=== PATIENT | female | born 1995 | race African-American/Black ===

== ENCOUNTER 2017-12-16 18:48 | Emergency (ER) | payer BC ==
--- NOTE | 2017-12-16 20:31 | ED ---
Upper Extremity Pain - History of Current Complaint Chief Complaint: EDUpperRespComplaint Stated Complaint: FEVER/CHEST PAIN Time Seen by Provider: 12/16/17 20:16 - Allergies/Home Medications Allergies/Adverse Reactions: Allergies Allergy/AdvReac Type Severity Reaction Status Date / Time albuterol Allergy Unknown Verified 12/16/17 19:04 Reaction Details grass pollen Allergy Eyes Verified 12/16/17 19:04 Itchy/Swollen/Red/Watery mold Allergy Difficulty Verified 12/16/17 19:04 Breathing PMH/Surg Hx/FS Hx/Imm Hx Infectious Disease History: No Infectious Disease History: Denies: Traveled Outside the [place] in Last 30 Days Physical Exam Vital Signs On Initial Exam: Initial Vitals Temp Pulse Resp BP Pulse Ox 97.7 F 97 16 144/74 99 12/16/17 18:58 12/16/17 18:58 12/16/17 18:58 12/16/17 18:58 12/16/17 18:58 Diagnostics - Vital Signs Vital Signs Temp Pulse Resp BP Pulse Ox 12/16/17 18:58 97.7 F 97 16 144/74 99 - Laboratory Result Diagrams: 12/16/17 20:33 Lab Statement: Any lab studies that have been ordered have been reviewed, and results considered in the medical decision making process. - EKG 20:42 Cardiac Rate: NL - 90 bpm EKG Rhythm: Sinus Rhythm Summary of EKG Findings: L axis deviation. Bordeline flattening of the T waves more pronounced in the lateral leads Discharge - Discharge Plan Referrals: No Primary Care Phys,NOPCP [Primary Care Provider] - - Attestation Statements Document Initiated by Scribe: Yes Documenting Scribe: Roseann Erickson Provider For Whom Scribe is Documenting (Include Credential): Dr. Katharina Salmon MD Scribe Attestation: Roseann Jamil, scribed for Dr. Katharina Salmon MD on 12/16/17 at 2052.
[2017-12-16 20:43] LABS: Hematocrit 42 % (35-47); Hemoglobin 14.1 g/dl (12.0-16.0); Mean Corpuscular HGB Conc 34 g/dl (31-36); Mean Corpuscular Hemoglobin 30 pg (27-31); Mean Corpuscular Volume 87 fL (80-97); Mean Platelet Volume 7.4 um3 (7.4-10.4); Platelet Count 192 10^3/ul (150-450); Red Blood Count 4.79 10^6/ul (4.00-5.40); Red Cell Distribution Width 13 % (10.5-15); White Blood Count 4.2 10^3/ul (3.5-10.8)
[2017-12-16 20:52] LABS: INR 1.14 (0.77-1.02)
[2017-12-16 20:56] LABS: Urine Appearance Clear; Urine Blood Negative (Negative); Urine Color Straw; Urine Ketones Negative (Negative); Urine Protein Negative (Negative); Urine Specific Gravity 1.005 (1.010-1.030); Urine Urobilinogen Negative (Negative)
[2017-12-16 21:02] LABS: ABS Basophils 0 10^3/ul (0-0.2); ABS Eosinophils 0 10^3/ul (0-0.6); ABS Lymphocytes 0.8 10^3/ul (1.0-4.8); ABS Monocytes 0.8 10^3/ul (0-0.8); ABS Neutrophils 2.6 10^3/ul (1.5-7.7)
[2017-12-16 21:03] LABS: EGFR Non-African American 82.5 (>60)
[2017-12-16 21:07] LABS: ABS Basophils 0 10^3/ul (0-0.2); ABS Neutrophils 2.4 10^3/ul (1.5-7.7); Monocytes % 14 % (0-7)
[2017-12-16] MEDS ORDERED: Ketorolac INJ* 30 MG/ML 1 ML VIAL IV PUSH ONE (21:16)
[2017-12-16] MEDS ORDERED: NS 0.9% 1000 ML* 1,000 ML IV ONE (21:16)
[2017-12-16] MEDS ORDERED: Iohexol 350* (CONTRAST) 500 ML MDV IV ONE (21:22)
--- NOTE | 2017-12-16 21:42 | ED ---
Respiratory - HPI Summary HPI Summary: The pt is a 22 y/o female presenting to [facility] c/o a persistent cough since 2 weeks ago. She notes an intermittent fever for the last 1 week, and mid sternal CP but denies sore throat, body aches, and muscle aches. The CP rated 5/10 in severity is aggravated by deep breaths and coughing. - History of Current Complaint Chief Complaint: EDUpperRespComplaint Stated Complaint: FEVER/CHEST PAIN Time Seen by Provider: 12/16/17 20:16 Hx Obtained From: Patient Onset/Duration: Gradual Onset, Lasting Weeks - 2 weeks, Still Present Initial Severity: Moderate Current Severity: Moderate Pain Intensity: 5 Character: Cough (Productive) Aggravating Factor(s): Deep Breaths, Other - Coughing Alleviating Factor(s): Nothing Associated Signs and Symptoms: Negative - sore throat, body aches, and muscle aches, Fever, Chest Pain with Cough - Allergy/Home Medications Allergies/Adverse Reactions: Allergies Allergy/AdvReac Type Severity Reaction Status Date / Time albuterol Allergy Unknown Verified 12/16/17 19:04 Reaction Details grass pollen Allergy Eyes Verified 12/16/17 19:04 Itchy/Swollen/Red/Watery mold Allergy Difficulty Verified 12/16/17 19:04 Breathing Home Medications: Home Medications Escitalopram Oxalate [Lexapro 10 mg] 10 mg PO DAILY 12/16/17 [History Confirmed 12/16/17] buPROPion TAB* [Wellbutrin TAB*] 100 mg PO BID 12/16/17 [History Confirmed 12/16] PMH/Surg Hx/FS Hx/Imm Hx Previously Healthy: No Endocrine/Hematology History: Denies: Hx Diabetes Cardiovascular History: Denies: Hx Hypertension Respiratory History: Reports: Hx Asthma Sensory History: Denies: Hx Deafness Opthamlomology History: Denies: Hx Legally Blind - Cancer History Cancer Type, Location and Year: None reported - Surgical History Surgery Procedure, Year, and Place: None reported Infectious Disease History: No Infectious Disease History: Denies: Traveled Outside the [place] in Last 30 Days - Family History Known Family History: Negative: Seizure Disorder, Blood Disorder - Social History Occupation: Student Lives: Dormitory/Roommates Alcohol Use: Rare Substance Use Type: Reports: None Smoking Status (MU): Never Smoked Tobacco Review of Systems Constitutional: Negative - Body aches Positive: Fever Negative: Sore Throat Positive: Chest Pain Positive: Cough Musculoskeletal: Negative - Muscle aches All Other Systems Reviewed And Are Negative: Yes Physical Exam - Summary Physical Exam Summary: GENERAL: Patient is a well developed and nourished F who is lying comfortable in the stretcher. Patient is not in any acute respiratory distress. HEAD AND FACE: Normocephalic EYES: PERRLA, EOMI x 2. EARS: Hearing grossly intact. MOUTH: Oropharynx within normal limits. NECK: Supple, trachea is midline, no adenopathy, no JVD, no carotid bruit. CHEST: Symmetric, no tenderness at palpation LUNGS: Clear to auscultation bilaterally. No wheezing or crackles. CVS: Regular rate and rhythm, S1 and S2 present, no murmurs or gallops appreciated. ABDOMEN: Soft, non-tender. Bowel sounds are normal. No abdominal abnormal pulsations. EXTREMITIES: Full ROM in all major joints, no edema, no cyanosis or clubbing. NEURO: Alert and oriented x 3. No acute neurological deficits. Speech is normal and follows commands. SKIN: Dry and warm Triage Information Reviewed: Yes Vital Signs On Initial Exam: Initial Vitals Temp Pulse Resp BP Pulse Ox 97.7 F 97 16 144/74 99 12/16/17 18:58 12/16/17 18:58 12/16/17 18:58 12/16/17 18:58 12/16/17 18:58 Vital Signs Reviewed: Yes Diagnostics - Vital Signs Vital Signs Temp Pulse Resp BP Pulse Ox 12/16/17 21:00 93 96 12/16/17 20:44 91 98 12/16/17 20:43 95 127/83 98 12/16/17 18:58 97.7 F 97 16 144/74 99 - Laboratory Lab Results: Lab Results 12/16/17 12/16/17 12/16/17 Range/Units 20:33 20:33 20:33 WBC 4.2 (3.5-10.8) 10^3/ul RBC 4.79 (4.00-5.40) 10^6/ul Hgb 14.1 (12.0-16.0) g/dl Hct 42 (35-47) % MCV 87 (80-97) fL MCH 30 (27-31) pg MCHC 34 (31-36) g/dl RDW 13 (10.5-15) % Plt Count 192 (150-450) 10^3/ul MPV 7.4 (7.4-10.4) um3 Neut % (Auto) Not Reportable Lymph % (Auto) Not Reportable [place] % (Auto) Not Reportable Eos % (Auto) Not Reportable Baso % (Auto) Not Reportable Absolute Neuts (auto) 2.6 (1.5-7.7) 10^3/ul Absolute Lymphs (auto) 0.8 L (1.0-4.8) 10^3/ul Absolute Monos (auto) 0.8 (0-0.8) 10^3/ul Absolute Eos (auto) 0 (0-0.6) 10^3/ul Absolute Basos (auto) 0 (0-0.2) 10^3/ul Absolute Nucleated RBC Not Reportable Immature Gran % 1 (0-9) % Neutrophils % 58 (38-83) % Band Neutrophils % 1 (0-8) % Lymphocytes % 23 L (25-47) % Reactive Lymphs % 4 (0-6) % Monocytes % 14 H (0-7) % Eosinophils % 0 (0-6) % Basophils % 0 (0-2) % Nucleated RBC % Not Reportable Abs Neuts (Manual) 2.4 (1.5-7.7) 10^3/ul Abs Lymphs (Manual) 1.0 (1.0-4.8) 10^3/ul Abs Monocytes (Manual) 0.6 (0-0.8) 10^3/ul Absolute Eos (Manual) 0 (0-0.6) 10^3/ul Abs Basophils (Manual) 0 (0-0.2) 10^3/ul Normal RBC Morphology Normal (Normal) Hem Pathologist Commnt Pending INR (Anticoag Therapy) (0.77-1.02) APTT (26.0-36.3) seconds D-Dimer, Quantitative (Less Than 230) ng/mL Sodium 136 (135-145) mmol/L Potassium 2.9 L (3.5-5.0) mmol/L Chloride 100 L (101-111) mmol/L Carbon Dioxide 28 (22-32) mmol/L Anion Gap 8 (2-11) mmol/L BUN 7 (6-24) mg/dL Creatinine 0.86 (0.51-0.95) mg/dL Est GFR ( Amer) 99.8 (>60) Est GFR (Non-Af Amer) 82.5 (>60) BUN/Creatinine Ratio 8.1 (8-20) Glucose 109 H (70-100) mg/dL Lactic Acid 1.1 (0.5-2.0) mmol/L Calcium 9.0 (8.6-10.3) mg/dL Total Bilirubin 0.70 (0.2-1.0) mg/dL AST 26 (13-39) U/L ALT 15 (7-52) U/L Alkaline Phosphatase 38 (34-104) U/L Troponin I 0.00 (<0.04) ng/mL C-React Prot High Sens 50.03 H (<2.00) mg/L Total Protein 8.0 (6.4-8.9) g/dL Albumin 4.5 (3.2-5.2) g/dL Globulin 3.5 (2-4) g/dL Albumin/Globulin Ratio 1.3 (1-3) Beta HCG, Quant < 0.60 mIU/mL Urine Color Urine Appearance Urine pH (5-9) Ur Specific [place] (1.010-1.030) Urine Protein (Negative) Urine Ketones (Negative) Urine Blood (Negative) Urine Nitrate (Negative) Urine Bilirubin (Negative) Urine Urobilinogen (Negative) Ur Leukocyte Esterase (Negative) Urine Glucose (Negative) Monoscreen Pending Influenza A (Rapid) (Negative) Influenza B (Rapid) (Negative) 12/16/17 12/16/17 12/16/17 Range/Units 20:33 20:51 21:00 WBC (3.5-10.8) 10^3/ul RBC (4.00-5.40) 10^6/ul Hgb (12.0-16.0) g/dl Hct (35-47) % MCV (80-97) fL MCH (27-31) pg MCHC (31-36) g/dl RDW (10.5-15) % Plt Count (150-450) 10^3/ul MPV (7.4-10.4) um3 Neut % (Auto) Lymph % (Auto) [place] % (Auto) Eos % (Auto) Baso % (Auto) Absolute Neuts (auto) (1.5-7.7) 10^3/ul Absolute Lymphs (auto) (1.0-4.8) 10^3/ul Absolute Monos (auto) (0-0.8) 10^3/ul Absolute Eos (auto) (0-0.6) 10^3/ul Absolute Basos (auto) (0-0.2) 10^3/ul Absolute Nucleated RBC Immature Gran % (0-9) % Neutrophils % (38-83) % Band Neutrophils % (0-8) % Lymphocytes % (25-47) % Reactive Lymphs % (0-6) % Monocytes % (0-7) % Eosinophils % (0-6) % Basophils % (0-2) % Nucleated RBC % Abs Neuts (Manual) (1.5-7.7) 10^3/ul Abs Lymphs (Manual) (1.0-4.8) 10^3/ul Abs Monocytes (Manual) (0-0.8) 10^3/ul Absolute Eos (Manual) (0-0.6) 10^3/ul Abs Basophils (Manual) (0-0.2) 10^3/ul Normal RBC Morphology (Normal) Hem Pathologist Commnt INR (Anticoag Therapy) 1.14 H (0.77-1.02) APTT 32.4 (26.0-36.3) seconds D-Dimer, Quantitative 354 H (Less Than 230) ng/mL Sodium (135-145) mmol/L Potassium (3.5-5.0) mmol/L Chloride (101-111) mmol/L Carbon Dioxide (22-32) mmol/L Anion Gap (2-11) mmol/L BUN (6-24) mg/dL Creatinine (0.51-0.95) mg/dL Est GFR ( Amer) (>60) Est GFR (Non-Af Amer) (>60) BUN/Creatinine Ratio (8-20) Glucose (70-100) mg/dL Lactic Acid (0.5-2.0) mmol/L Calcium (8.6-10.3) mg/dL Total Bilirubin (0.2-1.0) mg/dL AST (13-39) U/L ALT (7-52) U/L Alkaline Phosphatase (34-104) U/L Troponin I (<0.04) ng/mL C-React Prot High Sens (<2.00) mg/L Total Protein (6.4-8.9) g/dL Albumin (3.2-5.2) g/dL Globulin (2-4) g/dL Albumin/Globulin Ratio (1-3) Beta HCG, Quant mIU/mL Urine Color Straw Urine Appearance Clear Urine pH 6.0 (5-9) Ur Specific [place] 1.005 L (1.010-1.030) Urine Protein Negative (Negative) Urine Ketones Negative (Negative) Urine Blood Negative (Negative) Urine Nitrate Negative (Negative) Urine Bilirubin Negative (Negative) Urine Urobilinogen Negative (Negative) Ur Leukocyte Esterase Negative (Negative) Urine Glucose Negative (Negative) Monoscreen Influenza A (Rapid) Negative (Negative) Influenza B (Rapid) Negative (Negative) Result Diagrams: 12/16/17 20:33 12/16/17 20:33 Lab Statement: Any lab studies that have been ordered have been reviewed, and results considered in the medical decision making process. - Radiology CXR Radiology Interpretation Completed By: ED Physician - IMPRESSIPON: No acute process - EKG 20:42 Cardiac Rate: NL - 90 bpm EKG Rhythm: Sinus Rhythm Summary of EKG Findings: L axis deviation. Bordeline flattening of the T waves more pronounced in the lateral leads Disposition - Course Course Of Treatment: A 22 year-old F presents to the ED with a CC of a persistent cough since 2 weeks ago. She notes an intermittent fever for the last 1 week, and mid sternal CP but denies sore throat, body aches, and muscle aches. The CP rated 5/10 in severity is aggravated by deep breaths and coughing.A physical exam is unremarkable. A CXR reveals no acute process. An EKG reveals L axis deviation and borderline flattening of the T waves more pronounced in the lateral leads. In the ED course,the pt was given Iohexol 67 ml IV, Ketorolac 30 mg IV and N.s 0.9% 1000mL IV which improved the symptoms. The pt was signed out to Gal Pan MD at the change of shift at 22:00 hrs due to pending repeat EKG, repeat troponin, Chest/Thorax CT and bilateral LE US. Her Dx is CP. - Diagnoses Provider Diagnoses: Chest pain Discharge - Sign-Out/Discharge Documenting (check all that apply): Sign-Out Patient Signing out patient TO: Gal Shaikh - 22:00 hrs - Discharge Plan Condition: Stable Referrals: Care [facility] [Outside] - Billing Disposition and Condition Condition: STABLE - Attestation Statements Document Initiated by Scribe: Yes Documenting Scribe: Roseann Erickson Provider For Whom Scribe is Documenting (Include Credential): Dr. Katharina Salmon MD Scribe Attestation: Roseann Jamil , scribed for Dr. Katharina Salmon MD on 12/16/17 at 2154. Scribe Documentation Reviewed: Yes Provider Attestation: The documentation as recorded by the Roseann ramesh accurately reflects the service I personally performed and the decisions made by me, Dr. Katharina Salmon MD
--- NOTE | 2017-12-16 22:17 | RAD ---
EXAM: CT Angiography Chest With Intravenous Contrast EXAM DATE/TIME: 12/16/2017 9:36 PM CLINICAL HISTORY: 22 years old, female; Pain; Chest pain; Additional info: Cp eval for pe TECHNIQUE: Axial computed tomographic angiography images of the chest with intravenous contrast using CT angiography protocol. All CT scans at this facility use at least one of these dose optimization techniques: automated exposure control; mA and/or kV adjustment per patient size (includes targeted exams where dose is matched to clinical indication); or iterative reconstruction. Coronal and sagittal reformatted images were created and reviewed. MIP reconstructed images were created and reviewed. CONTRAST: 67 ml of OMNI 350 administered intravenously. COMPARISON: No relevant prior studies available. FINDINGS: Pulmonary arteries: Normal. No pulmonary emboli. Aorta: Normal. No aortic aneurysm. No aortic dissection. Lungs: Normal. No consolidation. No masses. Pleural space: Normal. No pneumothorax. No pleural effusion. Heart: Normal. No cardiomegaly. No pericardial effusion. Bones/joints: Unremarkable. No acute fracture. Soft tissues: Unremarkable. Lymph nodes: Unremarkable. No enlarged lymph nodes. IMPRESSION: Normal exam. No pulmonary embolism or other acute abnormality. To contact [email or web address] with a general question: [facility] - [phone] For direct physician to physician contact: Physician Hotline - [phone] [facility] ([facility] Facility ID #[id number])
--- NOTE | 2017-12-16 22:18 | RAD ---
EXAM: US Bilateral Duplex Lower Extremity Veins EXAM DATE/TIME: 12/16/2017 10:02 PM CLINICAL HISTORY: 22 years old, female; Abnormal findings; Abnormal lab test; Elevated d-dimer; Additional info: Elevated dimer TECHNIQUE: Real-time duplex ultrasound of the Bilateral Lower Extremities with 2-D ellington scale, color Doppler flow and spectral waveform analysis. Complete exam focused on the bilateral lower extremity veins. COMPARISON: No relevant prior studies available. FINDINGS: Right deep veins: Unremarkable. The common femoral, femoral and popliteal veins are patent without thrombus. Normal compressibility, augmentation response and Doppler waveforms. Right superficial veins: Saphenofemoral junction is patent without thrombus. Left deep veins: Unremarkable. The common femoral, femoral and popliteal veins are patent without thrombus. Normal compressibility, augmentation response and Doppler waveforms. Left superficial veins: Saphenofemoral junction is patent without thrombus. Soft tissues: Unremarkable. IMPRESSION: Normal exam. No deep venous thrombosis or other acute abnormality. To contact [facility] with a general question: [facility] - [phone] For direct physician to physician contact: Physician Hotline - [phone] [facility] ([facility] Facility ID #[id number])
--- NOTE | 2017-12-16 22:39 | ED ---
Progress - Progress Note Progress Note: Pt signed out from Dr. Salmon. CTA Chest results: Normal Exam. No pulmonary embolism or other acute abnormality. VL Lower Ext Veins Bilateral Results: Normal Exam. No DVT or other acute abnormality. - EKG/XRAY/CT CT: CTA Chest see progress note. Course/Dx - Course Course Of Treatment: Sign-out from Dr. Salmon. A 22 year-old F presents to the ED with a CC of a persistent cough since 2 weeks ago. Lab and imaging results were unremarkable for cardiopulmonary disease. Plan for discharge was discussed with patient and she was agreeable with this plan. - Diagnoses Provider Diagnoses: Chest pain, Acute bronchitis Discharge - Sign-Out/Discharge Documenting (check all that apply): Patient Departure - Discharge, Receiving Sign-Out - From Dr. Salmon Signing out patient TO: Gal Shaikh Receiving patient FROM: Katharina Salmon - Discharge Plan Condition: Stable Disposition: HOME Patient Education Materials: Acute Bronchitis (ED), Noncardiac Chest Pain (ED) Referrals: [facility] [Outside] Additional Instructions: Your CT scan of the chest fortunately looks normal; there is no sign of an infection or blood clot in the lungs. Your symptoms should resolve on their own , though it can take on average 3 weeks for a cough like this to resolve. - Billing Disposition and Condition Condition: STABLE Disposition: Home - Attestation Statements Document Initiated by Sangeeta: Yes Documenting Deenaibe: Norman Wade Provider For Whom Sangeeta is Documenting (Include Credential): Gal Shaikh MD Scribjohn paul Attestation: Norman Jamil, scribed for Gal Shaikh MD on 12/17/17 at 0547. Scribe Documentation Reviewed: Yes Provider Attestation: The documentation as recorded by the Norman ramesh accurately reflects the service I personally performed and the decisions made by me, Gal Shaikh MD
[2017-12-17 01:51] VITALS: BP 128/74
--- NOTE | 2017-12-17 07:19 | RAD ---
INDICATION: Cough. COMPARISON: There are no relevant prior studies available for comparison. TECHNIQUE: Dual-energy PA and lateral views of the chest were obtained. FINDINGS: The heart is within normal limits in size. Mediastinal and hilar contours appear within normal limits. The lungs are clear. No pleural effusion is present. IMPRESSION: NO EVIDENCE FOR ACTIVE CARDIOPULMONARY DISEASE. R0
== END 2017-12-17 01:15 | disposition home or self-care (01) ==
LOC: ED 18:48
DX: R07.89 Other chest pain (principal); R05 Cough; R50.9 Fever, unspecified
CPT/HCPCS: 36415; 71046; 71275; 80053; 81003; 83605; 84484; 84702; 85025; 85060; 85379; 85610; 85730; 86141; 86308; 87040; 93005; 93970; 96374; 99283; J1885; Q9967